=== PATIENT | female | born 1995 | race Caucasian/White ===

== ENCOUNTER 2022-03-23 11:01 | Emergency (ER) | payer SELFPAY ==
[2022-03-23 11:20] VITALS: BP 144/89; PULSE 123; RESP 18; TEMP 36.7; O2SAT 100; BMI 22.3
--- NOTE | 2022-03-23 12:22 | W.ED.PREGNAN ---
HPI - General: Chief complaint: Vaginal Bleeding Stated complaint: Vaginal bleeding Time Seen by Provider: 03/23/22 12:05 History of Present Illness: Patient is a 26-year-old female comes to the ED with vaginal bleeding. Patient's last menstrual period was February 27. Patient had a positive test on March 16 and had an hCG beta quant test done as well and it was around 200. She has started developing mild vaginal bleeding and some cramping pain as well today. She describes her bleeding is very mild and light. denies any fever, nausea/vomiting Date of Last Menstrual Period: 02/27/22 Associated symptoms: Deny abdominal pain, dysuria, headache(s), nausea or vomiting Review of Systems Const: Denies: fever(s), chills or fatigue Eyes: Denies: change in vision or eye discomfort ENMT: Denies: throat pain, odynophagia, nasal discharge or nasal congestion Card: Denies: chest pain, palpitations, edema, swelling of feet/ankles, dyspnea on exertion or orthopnea Resp: Denies: dyspnea, productive cough or non-productive cough GI: Reports: GI cramping; Denies: abdominal pain, nausea, vomiting, diarrhea, constipation or hematochezia : Reports: vaginal bleeding; Denies: flank pain, dysuria or hematuria Musc: Denies: neck pain, back pain or extremity swelling Skin/Breast: Denies: rash or new lesions Neuro: Denies: headache(s), numbness in extremities or weakness in extremities PFS ED PFSH: Medical History (Updated 03/24/22 @ 11:10 by MADIHA Espinal) No pertinent family history Surgical History (Updated 03/24/22 @ 11:10 by MADIHA Espinal) No pertinent past surgical history Female Reproductive History: Date of last menstrual period: 02/27/22 Physical Exam Const: COMMON NORMALS: patient oriented x3 HENMT: COMMON NORMALS: normocephalic HEAD & SCALP: normocephalic MOUTH: Normal oral and palatal mucosa present THROAT: posterior oropharynx normal and uvula midline Neck/C-Spine: COMMON NORMALS: supple GENERAL: Yes normal visual inspection Resp: COMMON NORMALS: normal respiratory effort, No retractions, No use of accessory muscles and clear to auscultation bilaterally AUSCULTATION: clear to auscultation bilaterally Cardio: COMMON NORMALS: regular rate, regular rhythm, S1 normal heart sound present, S2 normal heart sound present, No gallops present (Cardio), No clicks present (Cardio), No murmurs present (Cardio) and Peripheral pulses 2+ throughout RATE: regular rate RHYTHM: regular rhythm HEART SOUNDS: S1 normal heart sound present and S2 normal heart sound present PERIPHERAL PULSES: Peripheral pulses 2+ throughout GI: COMMON NORMALS: Normal to inspection, nondistended, normoactive bowel sounds present, Soft to palpation, non-tender and no masses PALPATION: Yes Soft to palpation : COMMON NORMALS: Yes no CVA tenderness BLADDER/KIDNEY EXAM: Yes no CVA tenderness Back/Pelvis: COMMON NORMALS: no CVA tenderness Extremity: COMMON NORMALS: normal to inspection Neuro: COMMON NORMALS: patient oriented x3 GAIT: Yes Normal gait present Skin: GENERAL SKIN EXAM: dry skin Course Vital Signs: Vital signs: Vital Signs Temperature 98.0 F 03/23/22 11:20 Pulse Rate 82 03/23/22 13:58 Respiratory Rate 16 03/23/22 13:58 Blood Pressure 144/89 03/23/22 11:20 Pulse Oximetry 100 03/23/22 11:20 MDM - OB/Uterine Contractions Medical Decision Making Patient is a 26-year-old female comes to the ED with some light vaginal bleeding and cramping. 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 She has some light bleeding earlier this week that resolved and then started having bleeding again today. Denies any vitals are stable. Patient appears nontoxic in no acute distress or pain. She has no abdominal tenderness. CBC, UA and CMP were unremarkable. hCG quant was 8 today. Patient likely is having an early spontaneous miscarriage. Patient was told to follow-up with her [employer] within the next couple days to be reevaluated and possibly do ultrasound if needed due to symptoms. Strict return to ED precautions given. Patient understood agree with plan. Lab Data I reviewed the patient's lab results. : 03/23/22 12:19 03/23/22 12:19 Laboratory Results WBC 10.0 10^3/uL (4.0-10.0) 03/23/22 12:19 RBC 3.78 10^6/uL (4.1-5.3) L 03/23/22 12:19 Hgb 11.9 g/dL (11.5-15.3) 03/23/22 12:19 Hct 35.6 % (37.0-47.0) L 03/23/22 12:19 MCV 94.2 fl (81-99) 03/23/22 12:19 MCH 31.5 pg (28.0-34.0) 03/23/22 12:19 MCHC 33.4 g/dL (30.0-36.0) 03/23/22 12:19 RDW 12.6 % (12.1-15.1) 03/23/22 12:19 Plt Count 261 10^3/cmm (130-400) 03/23/22 12:19 MPV 11.2 fL (7.4-10.4) H 03/23/22 12:19 Neut % (Auto) 67.7 % 03/23/22 12:19 Lymph % (Auto) 17.6 % 03/23/22 12:19 [place] % (Auto) 7.3 % 03/23/22 12:19 Eos % (Auto) 6.2 % 03/23/22 12:19 Baso % (Auto) 0.8 % 03/23/22 12:19 Neut # (Auto) 6.75 10^3/uL (1.8-7.7) 03/23/22 12:19 Lymph # (Auto) 1.8 10^3/uL (0.8-4.8) 03/23/22 12:19 [place] # (Auto) 0.7 10^3/uL (0.2-0.9) 03/23/22 12:19 Eos # (Auto) 0.6 10^3/uL (0.0-0.8) 03/23/22 12:19 Baso # (Auto) 0.1 10^3/uL (0.0-0.1) 03/23/22 12:19 Nucleated RBC % (auto) 0 % 03/23/22 12:19 Nucleated RBCs # 0.0 /100WBC 03/23/22 12:19 Sodium 140 mmol/L (136-145) 03/23/22 12:19 Potassium 4.1 mmol/L (3.5-5.1) 03/23/22 12:19 Chloride 104 mmol/L (98-107) 03/23/22 12:19 Carbon Dioxide 26 mmol/L (22-29) 03/23/22 12:19 Anion Gap 14.1 (5-19) 03/23/22 12:19 BUN 9 mg/dL (6-20) 03/23/22 12:19 Creatinine 0.5 mg/dL (0.5-0.9) 03/23/22 12:19 GFR Calculation 150.3 mL/min (90-130) H 03/23/22 12:19 Glucose 92 mg/dL (65-115) 03/23/22 12:19 Calculated Osmolality 288 mOsm/kg (285-295) 03/23/22 12:19 Calcium 9.1 mg/dL (8.5-10.5) 03/23/22 12:19 Total Bilirubin 0.4 mg/dL (0.15-1.2) 03/23/22 12:19 AST 14 U/L (0-32) 03/23/22 12:19 ALT 14 U/L (0-33) 03/23/22 12:19 Alkaline Phosphatase 81 U/L (35-105) 03/23/22 12:19 Total Protein 7.5 g/dL (6.6-8.7) 03/23/22 12:19 Albumin 4.5 g/dL (3.5-5.2) 03/23/22 12:19 Globulin 3.0 g/dL (1.3-4.6) 03/23/22 12:19 Ser , Semi-Qnt 8.35 mIU/mL 03/23/22 12:19 Urine Color Yellow (Yellow) 03/23/22 12:19 Urine Appearance Clear (CLEAR) 03/23/22 12:19 Urine pH 7 (5-7) 03/23/22 12:19 Ur Specific [place] 1.000 (1.005-1.030) L 03/23/22 12:19 Urine Protein Neg (Negative) 03/23/22 12:19 Urine Glucose (UA) Norm (Normal) 03/23/22 12:19 Urine Ketones Negative (Negative) 03/23/22 12:19 Urine Blood 3+ (Negative) H 03/23/22 12:19 Urine Nitrate Negative (Negative) 03/23/22 12:19 Urine Bilirubin Neg (Negative) 03/23/22 12:19 Urine Urobilinogen Norm mg/dL (Negative) 03/23/22 12:19 Ur Leukocyte Esterase Trace (Negative) H 03/23/22 12:19 Urine RBC 25-40 /hpf (0-2) H 03/23/22 12:19 Urine WBC 0-4 /hpf (0-5) H 03/23/22 12:19 Ur Squamous Epith Cells Rare /hpf (0-5) 03/23/22 12:19 Amorphous Sediment Not Reportable 03/23/22 12:19 Urine Bacteria Trace /hpf (NONE) 03/23/22 12:19 Discharge Plan Discharge Patient Disposition: Home Clinical Impression: Spontaneous miscarriage Condition: Stable Prescriptions: No Action No Known Home Medications Discharge Orders: Discharge ED (Routine); Ordered 03/23/22 Ordered By: Darío Orellana Discharge Diet: Regular Discharge Activity: Increase activity as tolerated Patient Instructions: Miscarriage (ED) Activity Restrictions/Additional Instructions: Follow-up with medical provider as directed in the next 2 to 4 days for reevaluation. Return to the ER or your medical provider if condition worsens. Please read and understand discharge instructions. Thank you for choosing [facility] for your healthcare needs today. Please realize this is an emergency room and that we are providing you with a medical screening exam and this may not be complete and all inclusive of all the testing and or work up that you may need to determine your ailment or severity of your illness. It is very important that you follow up as instructed or that you return to the Emergency Department should you have concerns or if your condition changes or worsens in any way. Coding Level of Care Code ED Memory Care Program Director for [facility] Exam Comprehensive
[2022-03-23 12:33] LABS: Basophils # 0.1 10^3/uL (0.0-0.1); Basophils % 0.8 %; Eosinophils # 0.6 10^3/uL (0.0-0.8); Eosinophils % 6.2 %; Hematocrit 35.6 % (37.0-47.0); Hemoglobin 11.9 g/dL (11.5-15.3); Lymphocytes # 1.8 10^3/uL (0.8-4.8); Lymphocytes % 17.6 %; Mean Corpuscular HGB Conc 33.4 g/dL (30.0-36.0); Mean Corpuscular Hemoglobin 31.5 pg (28.0-34.0); Mean Corpuscular Volume 94.2 fl (81-99); Mean Platelet Volume 11.2 fL (7.4-10.4); Monocytes # 0.7 10^3/uL (0.2-0.9); Monocytes % 7.3 %; Neutrophils # 6.75 10^3/uL (1.8-7.7); Neutrophils % 67.7 %; Nucleated Red Blood Cells % 0 %; Platelet Count 261 10^3/cmm (130-400); Red Blood Count 3.78 10^6/uL (4.1-5.3); Red Cell Distribution Width 12.6 % (12.1-15.1)
[2022-03-23 13:03] LABS: Add Urine Microscopic? YES; Bilirubin Urine Neg (Negative); Blood Urine 3+ (Negative); Glucose Urine UA Norm (Normal); Ketones Urine Negative (Negative); Leukocyte Esterase Urine Trace (Negative); Nitrate Urine Negative (Negative); Protein Urine Neg (Negative); Urine Appearance Clear (CLEAR); Urine Color Yellow (Yellow); Urobilinogen Urine Norm (Negative); pH Urine 7 (5-7)
[2022-03-23 13:05] LABS: HCG Quantitative 8.35 mIU/mL
[2022-03-23 13:07] LABS: RBC Urine 25-40 /hpf (0-2); Squamous Epithelial Cell Urine RARE /hpf (0-5); WBC Urine 0-4 /hpf (0-5)
[2022-03-23 13:08] LABS: Bacteria Urine TRACE /hpf
[2022-03-23 13:25] LABS: Alanine Aminotransferase 14 U/L (0-33); Albumin Level 4.5 g/dL (3.5-5.2); Alkaline Phosphatase 81 U/L (35-105); Anion Gap 14.1 (5-19); Aspartate Amino Transferase 14 U/L (0-32); Blood Urea Nitrogen 9 mg/dL (6-20); Calcium 9.1 mg/dL (8.5-10.5); Carbon Dioxide 26 mmol/L (22-29); Chloride 104 mmol/L (98-107); Glomerular Filtration Rate 150.3 mL/min (90-130); Glucose 92 mg/dL (65-115); Osmolality Calculated 288 mOsm/kg (285-295); Potassium 4.1 mmol/L (3.5-5.1); Sodium 140 mmol/L (136-145); Total Bilirubin 0.4 mg/dL (0.15-1.2); Total Protein 7.5 g/dL (6.6-8.7)
[2022-03-23 13:58] VITALS: PULSE 82; RESP 16
== END 2022-03-23 14:00 | disposition home or self-care (01) ==
PROVIDERS: Emergency Provider Physician Assistant
DX: O03.9 Complete or unspecified spontaneous abortion without complication (principal)
CPT/HCPCS: 80053; 81001; 84702; 85025; 99283